=== PATIENT | male | born 1995 | race Caucasian/White ===

== ENCOUNTER 2017-10-31 20:45 | Emergency (ER) | payer OTHER ==
[~2017-10-31] VITALS: Ht 165.1 cm; Wt 86.2 kg
[2017-10-31 20:54] VITALS: BP 169/77; PULSE 80; RESP 16; TEMP 98.3; O2SAT 100
[2017-10-31 21:05] VITALS: O2SAT 100
[2017-10-31] MEDS ORDERED: VENTAER INH (21:21)
[2017-10-31] MEDS ORDERED: SYMB80AE INH (21:21)
[2017-10-31] MEDS ORDERED: MONT10TA4 PO (21:22)
[2017-10-31] MEDS ORDERED: SODIUM CHLORIDE 0.9% FLUSH 10 ML FLUSH IVF PRN (21:45)
[2017-10-31] MEDS ORDERED: methylPREDNISolone SOD SUCC 125 MG/2 ML VIAL IV PUSH ONE (21:45)
--- NOTE | 2017-10-31 21:50 | PD ---
HPI Chief Complaint: Respiratory Symptoms Time Seen by Provider: 21:19 Travel History International Travel<30 days: No Contact w/Intl Traveler<30days: No Traveled to known affect area: No History of Present Illness HPI The patient is a 22-year-old male that has a history of asthma. He states for the last week he has been wheezing. He does not have a nebulizer machine at home and he has an albuterol as well as Symbicort inhaler. He states he does have a gradual onset of a headache that gets worse when he has an asthma attack and does have photophobia/phonophobia with his headache. He states the headache as a pounding type of pain and an 8/10. He denies any nausea or fever. He does not smoke. He denies any abdominal pain other than abdominal muscle pain from the coughing. The patient is worried about his headache because he states his father had an aneurysm in the brain. PFSH Past Medical History Asthma: Yes Diminished Hearing: No Respiratory: Yes Tetanus Vaccination: Unknown Influenza Vaccination: No Past Surgical History Surgical History: No Previous Surgery Social History Alcohol Use: Yes (Socially) Tobacco Use: No Substance Use: No Allergies-Medications (Allergen,Severity, Reaction): Coded Allergies: No Known Allergies (Unverified , 10/31/17) Reported Meds & Prescriptions Reported Meds & Active Scripts Active Reported Montelukast (Montelukast Sodium) 10 Mg Tab 10 Mg PO HS Symbicort Inh (Budesonide/Formoterol Fumarate) 80-4.5 Mcg/Act Aero 2 Puff INH Q12HR Ventolin Hfa 18 GM Inh (Albuterol Sulfate) 90 Mcg/Act Aer 2 Puff INH Q4-6H PRN Review of Systems Except as stated in HPI: all other systems reviewed are Neg Physical Exam Narrative GENERAL: The patient is alert, oriented 3 in minimal respiratory distress. His oximetry is 100% and respirations are 16. The blood pressure is 169/77 and heart rate is 80 and temperature 98.3. SKIN: Focused skin assessment warm/dry. No skin rashes noted. HEAD: Atraumatic. Normocephalic. EYES: Pupils equal and round. No scleral icterus. No injection or drainage. ENT: No nasal bleeding or discharge. Mucous membranes pink and moist. NECK: Trachea midline. No JVD. CARDIOVASCULAR: Regular rate and rhythm. No murmur appreciated. RESPIRATORY: No accessory muscle use. Scattered wheezes are heard bilaterally. Breath sounds equal bilaterally. GASTROINTESTINAL: Abdomen soft, non-tender, nondistended. Hepatic and splenic margins not palpable. MUSCULOSKELETAL: No obvious deformities. No clubbing. No cyanosis. No edema. NEUROLOGICAL: Awake and alert. No obvious cranial nerve deficits. Motor grossly within normal limits. Normal speech. PSYCHIATRIC: Appropriate mood and affect; insight and judgment normal. Data Data Last Documented VS Vital Signs Date Time Temp Pulse Resp B/P (MAP) Pulse Ox O2 Delivery O2 Flow Rate FiO2 10/31/17 21:05 100 Room Air 10/31/17 21:05 20 10/31/17 20:54 98.3 80 169/77 (107) Orders Orders Group A Rapid Strep Screen (10/31/17 21:37) Complete Blood Count With Diff (10/31/17 21:42) Comprehensive Metabolic Panel (10/31/17 21:42) Iv Access Insert/Monitor (10/31/17 21:42) Ecg Monitoring (10/31/17 21:42) Oximetry (10/31/17 21:42) Oxygen Administration (10/31/17 21:42) Chest, Pa & Lat (10/31/17 21:42) Sodium Chloride 0.9% Flush (Ns Flush) (10/31/17 21:45) Methylprednisolone So Succ Inj (Solumedr (10/31/17 21:45) Albuterol-Ipratropium Neb (Duoneb Neb) (10/31/17 21:45) Ct Brain W/O Iv Contrast(Rout) (10/31/17 21:42) Strep Culture (Group A) (10/31/17 21:57) Labs Laboratory Tests Test 10/31/17 21:57 White Blood Count 6.0 TH/MM3 Red Blood Count 4.92 MIL/MM3 Hemoglobin 14.5 GM/DL Hematocrit 43.0 % Mean Corpuscular Volume 87.4 FL Mean Corpuscular Hemoglobin 29.5 PG Mean Corpuscular Hemoglobin Concent 33.7 % Red Cell Distribution Width 11.7 % Platelet Count 198 TH/MM3 Mean Platelet Volume 8.1 FL Neutrophils (%) (Auto) 56.2 % Lymphocytes (%) (Auto) 35.5 % Monocytes (%) (Auto) 6.4 % Eosinophils (%) (Auto) 0.6 % Basophils (%) (Auto) 1.3 % Neutrophils # (Auto) 3.4 TH/MM3 Lymphocytes # (Auto) 2.1 TH/MM3 Monocytes # (Auto) 0.4 TH/MM3 Eosinophils # (Auto) 0.0 TH/MM3 Basophils # (Auto) 0.1 TH/MM3 CBC Comment DIFF FINAL Differential Comment Blood Urea Nitrogen 8 MG/DL Creatinine 0.95 MG/DL Random Glucose 85 MG/DL Total Protein 7.6 GM/DL Albumin 4.0 GM/DL Calcium Level 8.7 MG/DL Alkaline Phosphatase 71 U/L Aspartate Amino Transf (AST/SGOT) 20 U/L Alanine Aminotransferase (ALT/SGPT) 30 U/L Total Bilirubin 0.5 MG/DL Sodium Level 140 MEQ/L Potassium Level 3.5 MEQ/L Chloride Level 107 MEQ/L Carbon Dioxide Level 29.2 MEQ/L Anion Gap 4 MEQ/L Estimat Glomerular Filtration Rate 97 ML/MIN MDM Medical Decision Making Medical Screen Exam Complete: Yes Emergency Medical Condition: Yes Medical Record Reviewed: Yes Interpretation(s) The CT brain is normal. The CBC is normal. The complete metabolic profile is normal. The group A strep antigen is negative for group A strep antigen. Differential Diagnosis Subarachnoid hemorrhage-unlikely, strep pharyngitis, viral pharyngitis, anemia, electrolyte disorder Narrative Course It is now 1146 and the patient feels much better, his lungs have cleared up. Plan: He needs to follow-up with a primary care physician and is given a prescription for tapered course over 8 days of prednisone. Diagnosis Primary Impression: Acute asthma Additional Impression: Headache Med/Other Pt SpecificInfo: Prescription(s) given Scripts Prednisone (Prednisone) 50 Mg Tab 50 MG PO BID for than daily X 4 days, #12 TAB 0 Refills Prov: Shalom Preciado MD 10/31/17 Disposition: 01 DISCHARGE HOME Condition: Stable Shalom Preciado MD October 31, 2017 21:50
[2017-10-31] MEDS: RESP: ALBUTEROL 2.5 MG/IPRATROPIUM 0.5 MG NEB (SCH) INH ×3 (21:57→22:19)
[2017-10-31 22:07] LABS: AUTOMATED NEUTROPHIL # 3.4 TH/MM3 (1.8-7.7); BASOPHIL # 0.1 TH/MM3 (0-0.2); BASOPHIL % 1.3 % (0.0-2.0); EOSINOPHIL % 0.6 % (0.0-4.0); HEMOGLOBIN 14.5 GM/DL (13.0-17.0); LYMPH % 35.5 % (9.0-44.0); LYMPHOCYTE # 2.1 TH/MM3 (1.0-4.8); MEAN CELL VOLUME 87.4 FL (80.0-100.0); MEAN CORPUSCULAR HEMOGLOBIN 29.5 PG (27.0-34.0); MEAN CORPUSCULAR HGB CONC 33.7 % (32.0-36.0); MEAN PLATELET VOLUME 8.1 FL (7.0-11.0); MONO % 6.4 % (0.0-8.0); MONOCYTE # 0.4 TH/MM3 (0-0.9); NEUT % 56.2 % (16.0-70.0); PLATELET COUNT 198 TH/MM3 (150-450); RED BLOOD COUNT 4.92 MIL/MM3 (4.50-5.90); RED CELL DISTRIBUTION WIDTH 11.7 % (11.6-17.2)
[2017-10-31 22:20] LABS: CHLORIDE 107 MEQ/L (98-107); SODIUM (NA) 140 MEQ/L (136-145)
[2017-10-31 22:24] LABS: BICARBONATE 29.2 MEQ/L (21.0-32.0); BLOOD UREA NITROGEN 8 MG/DL (7-18); CALCIUM 8.7 MG/DL (8.5-10.1); GLUCOSE,RANDOM 85 MG/DL (74-106)
[2017-10-31 22:27] LABS: ALT (GPT) 30 U/L (12-78); AST (GOT) 20 U/L (15-37); CREATININE 0.95 MG/DL (0.60-1.30); GLOMERULAR FILTRATION RATE 97 ML/MIN (>89)
[2017-10-31 22:29] LABS: TOTAL BILIRUBIN ADULT 0.5 MG/DL (0.2-1.0); TOTAL PROTEIN 7.6 GM/DL (6.4-8.2)
[2017-10-31 22:30] LABS: ALKALINE PHOSPHATASE 71 U/L (45-117)
--- NOTE | 2017-10-31 23:10 | RADRPT ---
EXAM DATE/TIME: 10/31/2017 22:45 [facility] COMPARISON: No previous studies available for comparison. INDICATIONS : Cephalgia. RADIATION DOSE: 54.94 CTDIvol (mGy) MEDICAL HISTORY : Asthma. SURGICAL HISTORY : None. ENCOUNTER: Initial ACUITY: 1 day PAIN SCALE: 7/10 LOCATION: cranial TECHNIQUE: Multiple contiguous axial images were obtained of the head. Using automated exposure control and adj ustment of the mA and/or kV according to patient size, radiation dose was kept as low as reasonably a chievable to obtain optimal diagnostic quality images. DICOM format image data is available electro nically for review and comparison. FINDINGS: CEREBRUM: The ventricles are normal for age. No evidence of midline shift, mass lesion, hemorrhage or acute in farction. No extra-axial fluid collections are seen. POSTERIOR FOSSA: The cerebellum and brainstem are intact. The 4th ventricle is midline. The cerebellopontine angle i s unremarkable. EXTRACRANIAL: The visualized portion of the orbits is intact. SKULL: The calvaria is intact. No evidence of skull fracture. CONCLUSION: Normal examination. Miguel Butler MD on October 31, 2017 at 23:07 Board Certified Radiologist. This report was verified electronically.
[2017-10-31] MEDS ORDERED: PRED50 PO (23:50)
--- NOTE | 2017-10-31 23:52 | RADRPT ---
EXAM DATE/TIME: 10/31/2017 23:05 [facility] COMPARISON: No previous studies available for comparison. INDICATIONS : Short of breath MEDICAL HISTORY : Asthma SURGICAL HISTORY : None. ENCOUNTER: Initial ACUITY: 2 days PAIN SCORE: 7/10 LOCATION: Bilateral chest FINDINGS: PA and lateral views of the chest demonstrate the lungs to be symmetrically aerated without evidence of mass, infiltrate or effusion. The cardiomediastinal contours are unremarkable. Osseous structure s are intact. CONCLUSION: No acute disease. Miguel Butler MD on October 31, 2017 at 23:49 Board Certified Radiologist. This report was verified electronically.
[2017-11-01 00:11] VITALS: BP 140/64; TEMP 98.2
== END 2017-11-01 00:15 | disposition home or self-care (01) ==
LOC: PHED 20:45
DX: J45.909 Unspecified asthma, uncomplicated (principal); R51 Headache
CPT/HCPCS: 70450; 71046; 80053; 85025; 87081; 87880; 94640; 94664; 96374; 99284; J2930